=== PATIENT | female | born 1950 | race Caucasian/White ===

== ENCOUNTER 2018-08-06 12:33 | Day surgery (SDC) | payer MEDICARE, MEDICAID ==
[~2018-08-06 12:33] MED LIST: Acetaminophen TAB* 325 MG PO PRN; Buffered Lidocaine 1% SYRIN* 1 ML/SYRINGE INTRADERM ONE; Cyclopentolate 1% OPTH.SOL* 2 ML BTL ONE; Ketorolac 0.5% OPHTH (NF) 0.5 % 5 ML BTL ONE; Lidocaine 1%** 5 ML VIAL ONE; Neomycin/Polymy/Dex OPHTH.OIN* 3.5 GM ONE; Phenylephrine OPHTH SOL 2.5%* 2 ML ONE; Tetracaine 0.5% OPTH.SOL 4 ML* 1 DROP BTL ONE; Tropicamide 1% OPTH.SOL* BTL ONE
[2018-08-06] MEDS ORDERED: Midazolam* 1 MG/ML 2 ML VIAL (2 MG) ONE ×2 (14:36→14:39)
[2018-08-06] MEDS ORDERED: fentaNYL* 50 MCG/ML 2 ML VIAL (100 MCG VIAL) ONE (14:44)
[2018-08-06] MEDS ORDERED: Propofol* 10 MG/ML 20 ML BTL ONE (14:56)
[2018-08-06 15:29] VITALS: BP 157/97
--- NOTE | 2018-08-06 16:35 | OP ---
OPERATIVE REPORT: DATE OF OPERATION: 08/06/18 DATE OF : 54 SURGEON: Dr. Raymond Chawla TOOLSMITH: None. ANESTHESIA: Topical with intravenous sedation. PRE-OP DIAGNOSIS: Cataract with glaucoma, left eye. POST-OP DIAGNOSIS: Cataract with glaucoma, left eye. OPERATIVE PROCEDURE: Phacoemulsification and cataract extraction with posterior chamber intraocular lens implant and iStent implant, left eye. COMPLICATIONS: None. BLOOD LOSS: None. OPERATIVE FINDINGS: The patient was brought to the operating room and received intravenous sedation. A drop of Tetracaine was placed in her left eye. She was prepped and draped in the usual sterile f ashion for ophthalmic surgery and a speculum was placed in the left eye. A paracentesis was created at the 5 o'clock position and 0.1 cc of 1% preservative-free lidocaine was injected into the anterior chamber followed by DisCoVisc. The eye was digitally stabilized while a 2.75 mm keratome was used t o create a triplanar clear corneal incision at the 3 o'clock position. A continuous curvilinear caps ulorrhexis was created with a cystotome and Utrata forceps. BSS on a cannula was used to hydrodissec t the lens from the capsule. Phacoemulsification was performed in a kwrvgh-vkt-naobgio technique to create four fragments which were removed. Residual cortical material was removed with irrigation and aspiration. The capsular bag was polished. DisCoVisc was used to inflate the capsular bag. An AU00 T0 13.0 diopter lens was placed into the capsular bag. Supplemental DisCoVisc was used to deepen the anterior chamber and coat the surface of the cornea. The patient's head was rotated away from the s urgeon and the microscope was rotated towards the surgeon. A gonioprism was placed in the surface of the eye. An iStent morphology teacher with the iStent was introduced into the anterior chamber. Under direct visualization, the iStent was placed into the nasal trabecular meshwork. The iStent morphology teacher and the gonioprism were removed. The patient's head and the microscope were returned to a neutral position. Irrigation and aspiration were performed to remove viscoelastic from the eye. BSS on a cannula was used to hydrate the corneal stroma and seal the wound. At the end of the case, the pupil was round. The lens and iStent were stable. The eye pressure appeared normal and the wound was water tight. The speculum was removed and topical Maxitrol ointment was placed on the surface of the eye. The eye was closed, patched and shielded and the patient was sent to the recovery room in stable condition w ith postoperative instructions and followup appointment given. [id number]/[facility] #: [id number]
== END 2018-08-06 15:22 | disposition home or self-care (01) ==
LOC: OREAST 12:33
PROVIDERS: ATTEND Ophthalmology
DX: H25.042 Posterior subcapsular polar age-related cataract, left eye (principal); H40.10X1 Unspecified open-angle glaucoma, mild stage; I10 Essential (primary) hypertension; F41.9 Anxiety disorder, unspecified; Z88.0 Allergy status to penicillin; E78.5 Hyperlipidemia, unspecified; G50.0 Trigeminal neuralgia
CPT/HCPCS: A9270-GY; C1783; J2250; J2704; J3010; V2632

== ENCOUNTER 2018-08-13 10:15 | Day surgery (SDC) | payer MEDICARE, MEDICAID ==
[2018-08-13] MEDS ORDERED: Midazolam* 1 MG/ML 2 ML VIAL (2 MG) ONE (10:41)
[2018-08-13] MEDS ORDERED: fentaNYL* 50 MCG/ML 2 ML VIAL (100 MCG VIAL) ONE (10:41)
[2018-08-13] MEDS ORDERED: Trypan Blue 0.06% SOL* 0.5 ML BTL ONE (11:19)
[2018-08-13] MEDS ORDERED: Propofol* 10 MG/ML 20 ML BTL ONE (11:34)
[2018-08-13 12:31] VITALS: BP 158/63
[2018-08-13] MEDS ORDERED: Tetracaine 0.5% OPTH.SOL 4 ML* 1 DROP BTL ONE (14:42)
[2018-08-13] MEDS ORDERED: Neomycin/Polymy/Dex OPHTH.OIN* 3.5 GM ONE (14:42)
[2018-08-13] MEDS ORDERED: Cyclopentolate 1% OPTH.SOL* 2 ML BTL ONE (14:42)
[2018-08-13] MEDS ORDERED: Lidocaine 1%** 5 ML VIAL ONE (14:42)
[2018-08-13] MEDS ORDERED: Phenylephr/Ketorolac 1%/0.3% OPH DROP BTL ONE (14:42)
[2018-08-13] MEDS ORDERED: Tropicamide 1% OPTH.SOL* BTL ONE (14:42)
[2018-08-13] MEDS ORDERED: Phenylephrine OPHTH SOL 2.5%* 2 ML ONE (14:42)
[2018-08-13] MEDS ORDERED: Ketorolac 0.5% OPHTH (NF) 0.5 % 5 ML BTL ONE (14:42)
--- NOTE | 2018-08-13 14:50 | OP ---
DATE OF OPERATION: 08/13/18 - [facility] DATE OF : 54 SURGEON: Raymond Chawla MD VICE PRESIDENT OF CONTRACTS: None. ANESTHESIA: Topical with intravenous sedation. PRE-OP DIAGNOSES: Cataract, synechiae eye, pseudoexfoliation, glaucoma, stigmatism, right eye. POST-OP DIAGNOSES: Cataract, synechiae eye, pseudoexfoliation, glaucoma, stigmatism, right eye. OPERATIVE PROCEDURE: Phacoemulsification, cataract extraction, synechiolysis, Malyugin ring, Toric intraocular lens implant, right eye. COMPLICATION: None. BLOOD LOSS: None. DESCRIPTION OF PROCEDURE: The patient was brought to the operating room and received intravenous sedation. A drop of tetracaine was placed in the patient' s right eye. The patient was prepped and draped in the usual sterile fashion for ophthalmic surgery and attention was directed to the right eye, where a speculum was placed. It was noted that, despite preoperative dilating drops, the pupil was small and irregular with posterior synechiae. A small trabeculectomy bleb was noted superiorly. Pseudoexfoliation material and a dense cataract was noted. A paracentesis was created at the 11 o'clock position with care to avoid the trabeculectomy bleb. Lidocaine 1%, preservative -free, was injected to the anterior chamber followed by DisCoVisc. A partial synechiolysis was performed with the DisCoVisc cannula through the paracentesis port. The eye was digitally stabilized while 2.75 mg keratome was used to get a triplanar clear corneal incision at the 9 o'clock position. The remainder of the synechiolysis was performed through this wound. Extra DisCoVisc was placed in the anterior chamber and it was noted that the pupil still remained approximately 3.5 mm. A Malyugin ring was atraumatically inserted to hold the pupil open. A continuous curvilinear capsulorrhexis was created with a cystotome and Utrata forceps. BSS on a cannula was used to hydrodissect the lens from the capsule. The pressure in the irrigating system was reduced. Phacoemulsification was performed in a ofnacv-etb-voywvrd technique to create 4 fragments which were removed. Residual cortical material was removed with irrigation and aspiration. The capsular bag remained intact without any noted zonular dehiscence. ProVisc was used to inflate the capsule bag. The intraocular pressure was measured with the tonometry unit. The surface of the eye was irrigated with balanced saline solution. The ORA device was employed to help guide lens choice. An [id number] 14-Diopter lens was chosen. The reticle on the ORA device was employed to guide the lens placement to the appropriate axis. The lens was folded and then inserted into the capsular bag. It was atraumatically rotated to line up with a 35 degree axis. Irrigation and aspiration of viscoelastic material from posterior to lens was performed. Supplemental viscoelastic material was placed anterior to lens. The Malyugin ring was atraumatically removed. The remainder of the viscoelastic was irrigated and aspirated from the eye. BSS on a cannula was used to hydrodissect the corneal wound and seal it. At the end of the case, the pupil appeared round and central. The lens was centered stable in axial line. The eye pressure appeared normal and the wound was watertight. The speculum was removed and topical Maxitrol ointment was placed on the surface of the eye. The eye was closed, patched, and shielded and the patient was sent to recovery room in stable condition with postoperative instructions and followup appointment given. [id number]/[facility] #: [id number] [place]
== END 2018-08-13 12:25 | disposition home or self-care (01) ==
LOC: OREAST 10:15
PROVIDERS: ATTEND Ophthalmology
DX: H25.11 Age-related nuclear cataract, right eye (principal); H40.1410 Capsular glaucoma with pseudoexfoliation of lens, right eye, stage unspecified; H52.201 Unspecified astigmatism, right eye; H21.501 Unspecified adhesions of iris, right eye; I10 Essential (primary) hypertension; E78.5 Hyperlipidemia, unspecified; G50.0 Trigeminal neuralgia
CPT/HCPCS: A9270-GY; C9447; J2250; J2704; J3010; V2787

== ENCOUNTER 2020-04-13 10:31 | Inpatient (IN) ==
[~2020-04-13 10:31] MED LIST changes: -Acetaminophen TAB* 325 MG PO PRN; +Buffered Lidocaine 1% SYRIN 1 ml INTRADERM ONE; -Buffered Lidocaine 1% SYRIN* 1 ML/SYRINGE INTRADERM ONE; -Cyclopentolate 1% OPTH.SOL* 2 ML BTL ONE; +DiMENhydriNATE IV 50 mg/ml 1 ml VIAL IV PUSH PRN; -Ketorolac 0.5% OPHTH (NF) 0.5 % 5 ML BTL ONE; -Lidocaine 1%** 5 ML VIAL ONE; +Naloxone 0.4 mg VIAL 0.4 mg/ml 1 ml VIAL IV PRN; -Neomycin/Polymy/Dex OPHTH.OIN* 3.5 GM ONE; +Ondansetron 4 mg VIAL 2 MG/ML 2 ml VIAL IV PRN; -Phenylephrine OPHTH SOL 2.5%* 2 ML ONE; -Tetracaine 0.5% OPTH.SOL 4 ML* 1 DROP BTL ONE; -Tropicamide 1% OPTH.SOL* BTL ONE; +oxyCODONE/Acetamin 5/325 mg TAB PO PRN
[2020-04-13] MEDS ORDERED: Heparin 5000 UNITS/ML 1 mL VIAL ONE (10:49)
[2020-04-13] MEDS ORDERED: Clindamycin 900 MG/D5W BAG 900 MG/50 ML BAG IVPB ONE (10:49)
[2020-04-13] MEDS: Lactated Ringers 1000 ml BAG 1,000 ML IV SCH ×3 (11:27→19:20)
[2020-04-13] MEDS ORDERED: Bupivacaine 0.25% SDV 30 ML ONE (12:13)
[2020-04-13] MEDS ORDERED: fentaNYL 100 mcg/2 ml 50 MCG/ML VIAL ONE ×2 (12:59→15:49)
[2020-04-13] MEDS ORDERED: Midazolam 2 mg/2 ml VIAL 1 mg/ml 2 ml VIAL (2 mg) ONE (12:59)
[2020-04-13] MEDS ORDERED: Propofol 10 MG/ML 20 ML BTL ONE (13:01)
[2020-04-13] MEDS ORDERED: Ondansetron 4 mg VIAL 2 MG/ML 2 ml VIAL ONE (13:01)
[2020-04-13] MEDS ORDERED: Lidocaine 2% PF 5 ML VIAL ONE (13:02)
[2020-04-13] MEDS ORDERED: Rocuronium 50 mg VIAL 10 mg/ml 5 ml VIAL (50 mg) ONE (13:02)
[2020-04-13] MEDS ORDERED: EPHEDrine (Pressors) 50 MG/ML VIAL ONE (13:30)
[2020-04-13] MEDS ORDERED: HYDROmorphone 0.5 MG/0.5 ML SYRINGE IV SLOW PU PRN (15:37)
[2020-04-13] MEDS ORDERED: HYDROcodone/ACET. 7.5/325 LIQ 15 ML UDC PO PRN (15:37)
[2020-04-13] MEDS: fentaNYL 100 mcg/2 ml 50 MCG/ML VIAL IV PRN ×2 (15:51→16:24)
[2020-04-13] MEDS ORDERED: hydrALAZINE 20 mg/ml 1 ML Vial IV IV SLOW PU PRN (18:18)
[2020-04-13] MEDS: Ondansetron 4 mg VIAL 2 MG/ML 2 ml VIAL IV PRN (18:22)
[2020-04-13] MEDS: HYDROmorphone 1 MG/1 ML SYRINGE IV PRN (21:19)
[2020-04-13] MEDS: Heparin 5000 UNITS/ML 1 mL VIAL SUBCUT SCH (21:41)
[2020-04-14] MEDS: HYDROmorphone 1 MG/1 ML SYRINGE IV PRN ×2 (01:29→08:38)
[2020-04-14] MEDS: Lactated Ringers 1000 ml BAG 1,000 ML IV SCH ×3 (01:29→15:22)
[2020-04-14] MEDS: Heparin 5000 UNITS/ML 1 mL VIAL SUBCUT SCH ×3 (06:08→22:56)
[2020-04-14] MEDS: Ondansetron 4 mg VIAL 2 MG/ML 2 ml VIAL IV PRN (10:23)
[2020-04-14] MEDS ORDERED: hydrALAZINE 20 mg/ml 1 ML Vial IV IV SLOW PU PRN (19:09)
[2020-04-14] MEDS: D5W 1/2 NS KCl 20 meq 1000 ml 1,000 ML IV SCH (19:57)
[2020-04-15] MEDS: D5W 1/2 NS KCl 20 meq 1000 ml 1,000 ML IV SCH (04:10)
[2020-04-15] MEDS: Heparin 5000 UNITS/ML 1 mL VIAL SUBCUT SCH (05:38)
[2020-04-15 09:55] VITALS: BP 182/93
== END 2020-04-15 11:35 | disposition home or self-care (01) | DRG 621 ==
LOC: AA 10:31 → SSU 16:58
PROVIDERS: ADMIT Surgery; ATTEND Surgery